=== PATIENT | male | born 1970 | race Caucasian/White ===

== ENCOUNTER 2018-04-03 06:29 | Observation (INO) | payer SELFPAY ==
[~2018-04-03 06:29] MED LIST: Lactated Ringers 1,000 ML IV SCH; Lidocaine 2% 5 ML SDV ONE; Midazolam 1 MG/ML 2 ML SDV ONE; Propofol 200 MG/20 ML SDV ONE; Sodium Chloride 0.9% 10 ML Syringe FLUSH PRN; Sodium Chloride 0.9% 2.5 ML Syringe FLUSH PRN; ceFAZolin 1 GM in Premix Bag 1 BAG IV ONE; fentaNYL 100 MCG/2 ML SDV ONE
[2018-04-03] MEDS ORDERED: fentaNYL 100 MCG/2 ML SDV ONE (06:58)
[2018-04-03] MEDS ORDERED: Propofol 200 MG/20 ML SDV ONE (06:58)
[2018-04-03] MEDS ORDERED: Midazolam 1 MG/ML 2 ML SDV ONE (06:58)
[2018-04-03] MEDS: Lactated Ringers 1,000 ML IV SCH ×3 (07:15→21:42)
--- NOTE | 2018-04-03 07:37 | PCM.PREANE ---
Preanesthetic Assessment - Procedure Proposed Procedure: TURP - Anesthesia/Transfusion/Family Hx Anesthesia History: Prior Anesthesia Without Reaction Other Type of Anesthesia Reaction Comment: "I am wacky when I wake up" Family History of Anesthesia Reaction: No Transfusion History: No Prior Transfusion(s) - Review of Systems Other: Reports: None - Physical Assessment NPO Status Date: 04/02/18 NPO Status Time: 23:30 O2 Sat by Pulse Oximetry: 96 Respiratory Rate: 16 Vital Signs: Last Vital Signs Temp 37.3 C 04/03/18 07:15 Pulse 105 H 04/03/18 07:15 Resp 16 04/03/18 07:15 BP 143/95 H 04/03/18 07:15 Pulse Ox 96 04/03/18 07:15 Height: 6 ft 1 in Weight: 85.729 kg ASA Class: 2 Mental Status: Alert & Oriented x3 Airway Class: Mallampati = 1 Dentition: Reports: Edentulous Thyro-Mental Finger Breadths: 3 Mouth Opening Finger Breadths: 3 ROM/Head Extension: Full - Allergies Allergies/Adverse Reactions: Allergies Allergy/AdvReac Type Severity Reaction Status Date / Time No Known Allergies Allergy Verified 03/23/18 08:01 - Blood Blood Available: No - Acknowledgements Anesthesia Type Planned: Spinal, MAC Pt an Appropriate Candidate for the Planned Anesthesia: Yes Alternatives and Risks of Anesthesia Discussed w Pt/Guardian: Yes Pt/Guardian Understands and Agrees with Anesthesia Plan: Yes PreAnesthesia Questionnaire HEENT History: Reports: Other (See Below) Other HEENT History: no teeth Cardiovascular History: Reports: High Cholesterol, Hypertension Other Cardiovascular History: stopped taking blood pressure medications 06/25 Respiratory History: Reports: None Gastrointestinal History: Reports: Hepatitis Other Gastrointestinal History: hx hepatitis C with treatment Genitourinary History: Reports: Other (See Below) Other Genitourinary History: urinary retention Musculoskeletal History: Reports: Fracture Other Musculoskeletal History: hx fx wrist and nose Neurological History: Reports: Concussion, Head Trauma Psychiatric History: Reports: None Endocrine/Metabolic History: Reports: Other (See Below) Other Endocrine/Metabolic History: states "one doctor told me I had thyroid issues" "it quit" "I was on something small for my thyroid" Hematologic History: Reports: None Immunologic History: Reports: None Oncologic (Cancer) History: Reports: None Dermatologic History: Reports: None - Infectious Disease History Infectious Disease History: Reports: Hepatitis C - Past Surgical History Head Surgeries/Procedures: Reports: None HEENT Surgical History: Reports: Tonsillectomy Cardiovascular Surgical History: Reports: None Respiratory Surgical History: Reports: None GI Surgical History: Reports: Hernia, Inguinal Other GI Surgeries/Procedures: geovany inguinal hernia repair Male Surgical History: Reports: None Endocrine Surgical History: Reports: None Musculoskeletal Surgical History: Reports: Other (See Below) Other Musculoskeletal Surgeries/Procedures:: left thumb surgery Oncologic Surgical History: Reports: None Dermatological Surgical History: Reports: None - SUBSTANCE USE Smoking Status *Q: Current Every Day Smoker Tobacco Use Within Last Twelve Months: Cigarettes Recreational Drug Use History: Yes Recreational Drug Type: Reports: Marijuana/Hashish, Methamphetamine Recreational Drug Last Use: states last use was within the last month - HOME MEDS Home Medications: Home Meds Metoprolol Tartrate 25 mg PO BEDTIME 03/30/18 [History] Tamsulosin HCl [Flomax] 2 tab PO DAILY 03/30/18 [History] - CURRENT (IN HOUSE) MEDS Current Meds: Current Medications Lactated Ringer's (Ringers, Lactated) 1,000 mls @ 100 mls/hr IV ASDIRECTED [facility] Last Admin: 04/03/18 07:15 Dose: 100 mls/hr Tobramycin 120 mg/ Sodium (Chloride) 103 mls @ 206 mls/hr IV ONETIME ONE Stop: 04/03/18 07:59 Sodium Chloride (Saline Flush) 10 ml FLUSH ASDIRECTED PRN PRN Reason: Keep Vein Open Sodium Chloride (Saline Flush) 2.5 ml FLUSH ASDIRECTED PRN PRN Reason: Keep Vein Open Discontinued Medications Fentanyl (Sublimaze) Confirm Administered Dose 100 mcg .ROUTE .STK-MED ONE Stop: 03/27/18 06:47 Fentanyl (Sublimaze) Confirm Administered Dose 100 mcg .ROUTE .STK-MED ONE Stop: 04/03/18 06:59 Lactated Ringer's (Ringers, Lactated) 1,000 mls @ 100 mls/hr IV ASDIRECTED [facility] Cefazolin Sodium/Dextrose (Ancef) Confirm Administered Dose 50 mls @ as directed .ROUTE .STK-MED ONE Stop: 03/27/18 08:12 Cefazolin Sodium/Dextrose 1 gm (/ Premix) 50 mls @ 100 mls/hr IV ONCALL ONE Stop: 04/03/18 00:30 Lidocaine (Xylocaine-Mpf 2%) Confirm Administered Dose 5 ml .ROUTE .STK-MED ONE Stop: 03/27/18 06:46 Midazolam HCl (Versed 1 Mg/Ml) Confirm Administered Dose 2 mg .ROUTE .STK-MED ONE Stop: 03/27/18 06:47 Midazolam HCl (Versed 1 Mg/Ml) Confirm Administered Dose 2 mg .ROUTE .STK-MED ONE Stop: 04/03/18 06:59 Propofol (Diprivan 20 Ml) Confirm Administered Dose 400 mg .ROUTE .STK-MED ONE Stop: 03/27/18 06:46 Propofol (Diprivan 20 Ml) Confirm Administered Dose 200 mg .ROUTE .STK-MED ONE Stop: 03/27/18 06:48 Propofol (Diprivan 20 Ml) Confirm Administered Dose 600 mg .ROUTE .STK-MED ONE Stop: 04/03/18 06:59 Sodium Chloride (Saline Flush) 10 ml FLUSH ASDIRECTED PRN PRN Reason: Keep Vein Open Sodium Chloride (Saline Flush) 2.5 ml FLUSH ASDIRECTED PRN PRN Reason: Keep Vein Open
[2018-04-03] MEDS ORDERED: diphenhydrAMINE 50 MG/ML SDV ONE (08:17)
[2018-04-03] MEDS ORDERED: ceFAZolin 1 GM Vial ONE (08:18)
[2018-04-03] MEDS ORDERED: fentaNYL 100 MCG/2 ML SDV IVPUSH PRN (08:37)
[2018-04-03] MEDS ORDERED: Belladonna Alkaloids/Opium 16.2-30 MG Supp RECTAL PRN (09:22)
[2018-04-03] MEDS ORDERED: D5 1/2 NS w/ 20 mEq/L KCl 1,000 ML IV SCH (09:30)
--- NOTE | 2018-04-03 10:03 | PCM.POSTAN ---
POST ANESTHESIA ASSESSMENT - MENTAL STATUS Mental Status: Alert, Oriented - RESPIRATORY Respiratory Status: Respiratory Rate WNL, Airway Patent, O2 Saturation Stable - CARDIOVASCULAR CV Status: Pulse Rate WNL, Blood Pressure Stable - GASTROINTESTINAL GI Status: No Symptoms - PAIN Pain Score: 0 (spinal active and receding) - POST OP HYDRATION Hydration Status: Adequate & Stable - OBSERVATIONS Free Text/Narrative:: to Med/surg room in good condition
--- NOTE | 2018-04-03 10:08 | OR ---
SURGEON: Brisa Mae M.D. 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 OPERATION: TURP. DESCRIPTION OF PROCEDURE: The patient was given spinal anesthesia. He was in dorsal lithotomy position. Prepped and draped with sterile drapes. A 26-[place] continuous flow resectoscope was introduced in the bladder without difficulty. The bladder neck was resected. The prostate also was resected. He has a relatively small prostate. At the end, all prostatic chips were removed. Both ureteral orifices were intact. The area of the external sphincter was intact. A 20-[place] three- way catheter was left in the bladder connected to TUR drip. The patient tolerated the procedure well. Estimated blood loss under 100 mL. TOBIN / EVELIN /[id number]
[2018-04-03] MEDS: Bacitracin Oint 28.35 GM Tube TOP SCH ×2 (15:04→21:42)
[2018-04-03] MEDS ORDERED: Ibuprofen 400 MG Tab PO PRN (18:55)
[2018-04-03] MEDS: Docusate Sodium 100 MG Cap PO SCH (21:03)
[2018-04-03] MEDS: Nicotine 21 MG/24 Hr Patch TRDERM SCH (21:04)
[2018-04-04] MEDS: Lactated Ringers 1,000 ML IV SCH (05:19)
[2018-04-04] MEDS: Bacitracin Oint 28.35 GM Tube TOP SCH ×2 (05:19→14:00)
[2018-04-04] MEDS ORDERED: Sodium Chloride 0.9% 10 ML Syringe FLUSH PRN (09:54)
[2018-04-04] MEDS ORDERED: Sodium Chloride 0.9% 2.5 ML Syringe FLUSH PRN (09:54)
[2018-04-04] MEDS: Nicotine 21 MG/24 Hr Patch TRDERM SCH (09:56)
[2018-04-04] MEDS: Docusate Sodium 100 MG Cap PO SCH (09:56)
[2018-04-04 11:20] VITALS: BP 142/100
== END 2018-04-04 14:30 | disposition left against medical advice (07) ==
LOC: MW.SDS 06:29 → MW.MS 11:18 → MW.SDS 18:17
PROVIDERS: ADMIT Urology; ATTEND Urology
DX: N40.1 Benign prostatic hyperplasia with lower urinary tract symptoms (principal); R33.8 Other retention of urine; N31.9 Neuromuscular dysfunction of bladder, unspecified; I10 Essential (primary) hypertension; F17.210 Nicotine dependence, cigarettes, uncomplicated; E78.00 Pure hypercholesterolemia, unspecified; Z79.899 Other long term (current) drug therapy
CPT/HCPCS: 52601; 88305; A9270; J0690; J1200; J2250; J2704; J3010; J3260; J3480; J7030; J7120

== ENCOUNTER 2019-01-05 11:29 | Emergency (ER) | payer MEDICAID, OTHER ==
--- NOTE | 2019-01-05 11:33 | EDM.PDOC ---
ED HPI GENERAL MEDICAL PROBLEM - General Chief Complaint: General Stated Complaint: REDNESS AND SWELLING IN ELBOWS AND ANKLES Time Seen by Provider: 01/05/19 11:32 Source of Information: Reports: Patient History Limitations: Reports: No Limitations - History of Present Illness INITIAL COMMENTS - FREE TEXT/NARRATIVE: HISTORY AND PHYSICAL: History of present illness: Patient is a 48-year-old male who presents to the emergency room with complaints of right medial ankle pain. He states that over the past few days he has noticed some redness and tenderness with palpation of the right medial ankle. Today he noticed slight discomfort to the left ankle and bilateral elbows. He states there is some redness to the site as well, although is concerned it may be superficial sunburn. He denies any injury, trauma or falls. Patient denies any fever, chills, headache, change in vision, syncope or near syncope. Denies any chest pain, back pain, shortness of breath or cough. Denies any abdominal pain, nausea, vomiting, diarrhea, constipation or dysuria. Patient has been eating and drinking appropriately. Review of systems: As per history of present illness and below otherwise all systems reviewed and negative. Past medical history: As per history of present illness and as reviewed below otherwise noncontributory. Surgical history: As per history of present illness and as reviewed below otherwise noncontributory. Social history: See social history for further information Family history: As per history of present illness and as reviewed below otherwise noncontributory. Physical exam: General: Well-developed and well-nourished 48-year-old male. Alert and oriented. Nontoxic appearing and in no acute distress. HEENT: Atraumatic, normocephalic, pupils equal and reactive bilaterally, negative for conjunctival pallor or scleral icterus, mucous membranes moist, TMs normal bilaterally, throat clear, neck supple, nontender, trachea midline. No drooling or trismus noted. No meningeal signs. No hot potato voice noted. Lungs: Clear to auscultation, breath sounds equal bilaterally, chest nontender. Heart: S1S2, regular rate and rhythm without overt murmur Abdomen: Soft, nondistended, nontender. Negative for masses or hepatosplenomegaly. Negative for costovertebral tenderness. Pelvis: Stable nontender. Genitourinary: Deferred. Rectal: Deferred. Skin: Mild soft tissue swelling and erythema to the medial right ankle. Superficial sunburn noted to bilateral upper extremities starting from the T- shirt line down to wrists. Otherwise skin is intact, warm, dry. No lesions or rashes noted. Extremities: Atraumatic, tenderness to the medial right ankle with mild soft tissue swelling and erythema. Patient is fully ambulatory and moves all extremities per self without difficulty or deficits, negative for cords or calf pain. Neurovascular unremarkable. Neuro: Awake, alert, oriented. Cranial nerves II through XII unremarkable. Cerebellum unremarkable. Motor and sensory unremarkable throughout. Exam nonfocal. Notes: Lab work and x-ray are unremarkable. Due to patient's presentation and physical examination a minute treat him for gout. We discussed the need for follow-up with his primary care provider next week. Supportive care measures were reviewed and discussed. Voices understanding and is agreeable to plan of care. Denies any further questions or concerns at this time. Diagnostics: CBC, BMP, Uric Acid, Xray Therapeutics: None Prescription: [place] Prednisone Diclofenac Impression: Gout Plan: 1. Take the medications as directed. 2. Follow-up with her primary caregiver S3 discussed. Return to the ED as needed and as discussed. Definitive disposition and diagnosis as appropriate pending reevaluation and review of above. Joints Pain Score (Numeric/FACES): 10 - Related Data Allergies Allergy/AdvReac Type Severity Reaction Status Date / Time No Known Allergies Allergy Verified 01/05/19 11:37 Home Meds: Home Meds Metoprolol Tartrate 25 mg PO BEDTIME 03/30/18 [History] Colchicine 1 dose PO ASDIRECTED #3 capsule 01/05/19 [Rx] Diclofenac Sodium [Voltaren] 50 mg PO TID PRN #30 tab.ec 01/05/19 [Rx] predniSONE [Prednisone] 30 mg PO DAILY 5 Days #15 tablet 01/05/19 [Rx] Past Medical History HEENT History: Reports: Other (See Below) Other HEENT History: no teeth Cardiovascular History: Reports: High Cholesterol, Hypertension Other Cardiovascular History: stopped taking blood pressure medications 06/25 Respiratory History: Reports: None Gastrointestinal History: Reports: Hepatitis Other Gastrointestinal History: hx hepatitis C with treatment Genitourinary History: Reports: Other (See Below) Other Genitourinary History: urinary retention Musculoskeletal History: Reports: Fracture Other Musculoskeletal History: hx fx wrist and nose Neurological History: Reports: Concussion, Head Trauma Psychiatric History: Reports: None Endocrine/Metabolic History: Reports: Other (See Below) Other Endocrine/Metabolic History: states "one doctor told me I had thyroid issues" "it quit" "I was on something small for my thyroid" Hematologic History: Reports: None Immunologic History: Reports: None Oncologic (Cancer) History: Reports: None Dermatologic History: Reports: None - Infectious Disease History Infectious Disease History: Reports: Hepatitis C - Past Surgical History Neurological Surgical History: Social & Family History - Family History Family Medical History: Noncontributory - Caffeine Use Caffeine Use: Reports: None ED ROS GENERAL - Review of Systems Review Of Systems: ROS reveals no pertinent complaints other than HPI. ED EXAM, GENERAL - Physical Exam Exam: See Below (See dictation) Course - Vital Signs Last Recorded V/S: Last Vital Signs Temp 96.9 F 01/05/19 11:35 Pulse 103 H 01/05/19 11:35 Resp 18 01/05/19 11:35 BP 133/71 01/05/19 11:35 Pulse Ox 97 01/05/19 11:35 - Orders/Labs/Meds Orders: Active Orders 24 hr Category Date Time Status Ankle Min 3V Rt [CR] Stat Exams 01/05/19 11:39 Taken Labs: Laboratory Tests 01/05/19 01/05/19 Range/Units 11:46 11:46 WBC 10.14 (4.0-11.0) K/uL RBC 4.50 (4.50-5.90) M/uL Hgb 13.3 (13.0-17.0) g/dL Hct 39.6 (38.0-50.0) % MCV 88.0 (80.0-98.0) fL MCH 29.6 (27.0-32.0) pg MCHC 33.6 (31.0-37.0) g/dL RDW Std Deviation 43.7 (28.0-62.0) fl RDW Coeff of Martin 14 (11.0-15.0) % Plt Count 222 (150-400) K/uL MPV 10.70 (7.40-12.00) fL Neut % (Auto) 61.3 (48.0-80.0) % Lymph % (Auto) 21.6 (16.0-40.0) % Miner % (Auto) 12.3 (0.0-15.0) % Eos % (Auto) 4.3 (0.0-7.0) % Baso % (Auto) 0.5 (0.0-1.5) % Neut # (Auto) 6.2 H (1.4-5.7) K/uL Lymph # (Auto) 2.2 (0.6-2.4) K/uL Miner # (Auto) 1.3 H (0.0-0.8) K/uL Eos # (Auto) 0.4 (0.0-0.7) K/uL Baso # (Auto) 0.1 (0.0-0.1) K/uL Nucleated RBC % 0.0 /100WBC Nucleated RBCs # 0 K/uL Sodium 135 L (136-148) mmol/L Potassium 3.3 L (3.5-5.1) mmol/L Chloride 100 (98-107) mmol/L Carbon Dioxide 22.6 (21.0-32.0) mmol/L BUN 15 (7.0-18.0) mg/dL Creatinine 0.9 (0.8-1.3) mg/dL Est Cr Clr Drug Dosing 108.98 mL/min Estimated GFR (MDRD) > 60.0 ml/min Glucose 108 H (74-106) mg/dL Uric Acid 6.4 (2.6-7.2) mg/dL Calcium 9.0 (8.5-10.1) mg/dL Departure - Departure Time of Disposition: 12:17 Disposition: Home, Self-Care 01 Clinical Impression: Gout Qualifiers: Gout site: ankle Gout etiology: unspecified cause Chronicity: acute Laterality : right Qualified Code(s): M10.9 - Gout, unspecified - Discharge Information Prescriptions: Colchicine 1 dose PO ASDIRECTED #3 capsule Diclofenac Sodium [Voltaren] 50 mg PO TID PRN #30 tab.ec PRN Reason: Pain predniSONE [Prednisone] 30 mg PO DAILY 5 Days #15 tablet Instructions: Gout, [id number] Referrals: PCP,None [Primary Care Provider] - Forms: ED Department Discharge Additional Instructions: The following information is given to patients seen in the emergency department who are being discharged to home. This information is to outline your options for follow-up care. We provide all patients seen in our emergency department with a follow-up referral. The need for follow-up, as well as the timing and circumstances, are variable depending upon the specifics of your emergency department visit. If you don't have a primary care physician on staff, we will provide you with a referral. We always advise you to contact your personal physician following an emergency department visit to inform them of the circumstance of the visit and for follow-up with them and/or the need for any referrals to a consulting specialist. The emergency department will also refer you to a specialist when appropriate. This referral assures that you have the opportunity for follow-up care with a specialist. All of these measure are taken in an effort to provide you with optimal care, which includes your follow-up. Under all circumstances we always encourage you to contact your private physician who remains a resource for coordinating your care. When calling for follow-up care, please make the office aware that this follow-up is from your recent emergency room visit. If for any reason you are refused follow-up, please contact the [facility] at and asked to speak to the emergency department charge nurse. [facility] [address] [place] [id number] [address] [id number] 1. Take the medications as directed. 2. Follow-up with her primary caregiver as discussed. Return to the ED as needed and as discussed. - My Orders Last 24 Hours: My Active Orders 01/05/19 11:39 Ankle Min 3V Rt [CR] Stat - Assessment/Plan Last 24 Hours: My Active Orders 01/05/19 11:39 Ankle Min 3V Rt [CR] Stat
[2019-01-05 11:38] VITALS: BP 133/71
[2019-01-05 12:12] LABS: CHLORIDE,CL 100 mmol/L (98-107); SODIUM,NA 135 mmol/L (136-148)
--- NOTE | 2019-01-05 12:36 | CR ---
INDICATION: Right ankle swelling. TECHNIQUE: Three views right ankle. IMPRESSION: Mild periarticular swelling. No effusion. No bone finding of significance. No degenerative or inflammatory finding. Dictated by Khoa Tineo MD @ Jan 05 2019 12:31PM Signed by Dr. Khoa Tineo @ Jan 05 2019 12:34PM
== END 2019-01-05 12:26 | disposition home or self-care (01) ==
LOC: MW.ED 11:29
DX: M10.9 Gout, unspecified (principal); E78.00 Pure hypercholesterolemia, unspecified; I10 Essential (primary) hypertension; Z79.899 Other long term (current) drug therapy
CPT/HCPCS: 36415; 73610-26-RT; 73610-RT; 80048; 84550; 85025; 99283; 99283-25